=== PATIENT | male | born 1960 | race Caucasian/White ===

== ENCOUNTER 2017-07-24 08:29 | Day surgery (SDC) | payer BC ==
[~2017-07-24] VITALS: Ht 177.8 cm; Wt 76.0 kg
[2017-07-24] MEDS ORDERED: SULF1TAB24 PO (08:59)
[2017-07-24] MEDS ORDERED: ACYC-114 PO ×2 (08:59)
[2017-07-24 09:01] VITALS: BP 149/79
[2017-07-24] MEDS ORDERED: NO MEDICATIONS (09:26)
[2017-07-24 10:10] LABS: BLOOD UREA NITROGEN 13 mg/dL (7-18)
[2017-07-24 10:13] LABS: ASPARTATE AMINO TRANSFERASE 18 U/L (15-37)
[2017-07-24 10:46] LABS: DIFF TOTAL CELLS COUNTED 100 CELL DIFF; HEMOGLOBIN 15.4 g/dL (13.7-18.0); WHITE BLOOD COUNT 2.6 x10^3/uL (3.4-10)
[2017-07-24 10:52] LABS: VERIFY COUNTS? YES
[2017-07-24 10:53] LABS: OVALOCYTES 1+
[2017-07-24] MEDS ORDERED: LACTATED RINGERS 1,000 ML IV SCH (11:48)
[2017-07-24] MEDS ORDERED: SUFentanil 50 MCG/ML, 2ML ONE (12:54)
[2017-07-24] MEDS ORDERED: ONDANSETRON 2MG/ML, 2ML ONE (12:54)
[2017-07-24] MEDS ORDERED: ROCURONIUM 10 MG/ML,10ML ONE (12:54)
[2017-07-24] MEDS ORDERED: CEFAZOLIN 1,000 MG ONE (12:54)
[2017-07-24] MEDS ORDERED: DEXAMETHASONE 4 MG/ML, 1ML ONE (12:54)
[2017-07-24] MEDS ORDERED: PHENYLEPHRINE 10 MG/ML ONE (12:54)
[2017-07-24] MEDS ORDERED: KETAMINE 10 MG/ML, 20ML ONE (12:54)
[2017-07-24] MEDS ORDERED: PROPOFOL 10 MG/ML, 20ML ONE (12:54)
[2017-07-24] MEDS ORDERED: MIDAZOLAM 1 MG/ML, 2ML ONE (12:54)
[2017-07-24] MEDS ORDERED: BUPIVACAINE/PF 0.5% INFIL ONE (13:44)
[2017-07-24] MEDS ORDERED: OXYcodone 5 MG/5 ML ORAL.SOL UDC PO PRN (15:00)
[2017-07-24] MEDS ORDERED: FENTANYL PF 100 MCG/2ML IV PRN (15:00)
== END 2017-07-24 16:55 ==
LOC: OUT 08:29
PROVIDERS: ATTEND Surgery
DX: C43.39 Malignant melanoma of other parts of face (principal); Z72.89 Other problems related to lifestyle
CPT/HCPCS: 11642; 36415; 38500; 71010; 78195; 80053; 85025; 85610; 88307; 93005; A9541; J0690; J1100; J2250; J2370; J2405; J2704; J3490; J7120